=== PATIENT | female | born 1965 | race Caucasian/White ===

== ENCOUNTER 2021-02-13 14:05 | Emergency (ER) | payer BC ==
[2021-02-13 14:28] VITALS: BP 150/98; PULSE 90; TEMP 97.9; BMI 39.5
[2021-02-13] MEDS ORDERED: CASIRIVIMAB/IMDEVIMAB 10 ML in SODIUM CHLORIDE 100 ML IVPB ONE (14:52)
[2021-02-13 16:13] LABS: HEMATOCRIT 40.6 % (32.4-45.2); HEMOGLOBIN 13.3 GM/dL (10.7-15.3); MCH 29.5 pg (25.7-33.7); MCHC 32.7 g/dl (32.0-36.0); MEAN CELL VOLUME 90.2 fl (80-96); MEAN PLT VOLUME 7.9 fl (7.5-11.1); PLATELET COUNT 284 10^3/uL (134-434); RDW 13.9 % (11.6-15.6); WHITE BLOOD COUNT 5.3 K/mm3 (4.0-10.0)
[2021-02-13 16:26] LABS: CALCIUM 9.6 mg/dL (8.5-10.1)
[2021-02-13 16:27] LABS: BLOOD UREA NITROGEN 11.8 mg/dL (7-18)
[2021-02-13 16:30] LABS: CREATININE 0.7 mg/dL (0.55-1.3)
== END 2021-02-13 21:11 | disposition home or self-care (01) ==
LOC: JER 14:05 → JCOVINFU 14:05
PROC: 3E033GC Introduction of Other Therapeutic Substance into Peripheral Vein, Percutaneous Approach (ICD-10-PCS; principal; 2021-02-13)
DX: U07.1 COVID-19 (principal)
CPT/HCPCS: 36415; 80048; 85027; 99284-25; M0240; Q0240

== ENCOUNTER 2022-06-10 08:28 | Emergency (ER) | payer BC ==
[2022-06-10] MEDS ORDERED: LORazepam 2 MG TABLET PO ONE (08:43)
[2022-06-10] MEDS ORDERED: LORazepam 0.5 MG TABLET ONE (08:48)
[2022-06-10 09:13] VITALS: BP 149/95; PULSE 95; RESP 18; TEMP 99.6; BMI 39.5
[2022-06-10] MEDS ORDERED: ONDANSETRON 4 MG TABLET PO ONE (09:26)
[2022-06-10] MEDS ORDERED: ONDANSETRON *ODT* 4 MG TABLET ONE (09:32)
== END 2022-06-10 10:31 | disposition home or self-care (01) ==
LOC: FER 08:28
DX: F41.9 Anxiety disorder, unspecified (principal)
CPT/HCPCS: 99283-25